=== PATIENT | female | born 1970 | race Caucasian/White ===

== ENCOUNTER → 2017-02-15 | Outpatient (CLI) | payer SELFPAY | LOC: YCFC.O 11:50 | PROVIDERS: ATTEND Nurse Practitioner Family | DX: E03.9 Hypothyroidism, unspecified (principal); I10 Essential (primary) hypertension; N92.0 Excessive and frequent menstruation with regular cycle; Z13.0 Encounter for screening for diseases of the blood and blood-forming organs and certain disorders involving the immune mechanism ==

== ENCOUNTER → 2017-04-20 | Outpatient (CLI) | payer SELFPAY | END | disposition home or self-care (01) | LOC: YCFC.O 10:57 | PROVIDERS: ATTEND Nurse Practitioner Family | DX: D50.9 Iron deficiency anemia, unspecified (principal) ==

== ENCOUNTER → 2017-05-01 | Outpatient (CLI) | payer OTHER | END | disposition home or self-care (01) | LOC: MAMMO 15:42 | PROVIDERS: ATTEND Family Medicine | DX: Z12.31 Encounter for screening mammogram for malignant neoplasm of breast (principal) ==

== ENCOUNTER → 2017-05-14 | Outpatient (CLI) | payer SELFPAY | LOC: YCFC.O 17:06 | PROVIDERS: ATTEND Nurse Practitioner Family | DX: D50.9 Iron deficiency anemia, unspecified (principal) ==

== ENCOUNTER 2018-08-14 17:21 | Emergency (ER) | payer SELFPAY ==
[2018-08-14] MEDS ORDERED: IPRATROPIUM/ALBUTEROL 3 ML VIAL INH ONE (18:22)
[2018-08-14] MEDS ORDERED: SODIUM CHLORIDE 0.9% (FLUSH) 10 ML SYG IV PRN (18:22)
--- NOTE | 2018-08-14 18:26 | ED.PDOC ---
History of Present Illness - General Source: patient Exam Limitations: no limitations - History of Present Illness Initial Comments: PT REPORTS 1 DAY HISTORY OF SOB. PT STATES THAT SHE DOESN'T FEEL LIKE SHE IS GETTING ENOUGH AIR. PT STATES THAT SHE FEELS INTERMITTENT PAINS IN THE CHEST THAT FEEL LIKE PINS AND NEEDLES. PT REPORTS USING HER INHALER AT HOME 2 TIMES TODAY WITHOUT IMPROVEMENT. SHE REPORTS OCCASIONAL NON PRODUCTIVE COUGH BUT DENIES FEVER. Timing/Duration: 24 hours Severity: moderate Activities at Onset: none Associated Symptoms: chest pain, cough <Vinny Prajapati H - Last Filed: 08/14/18 19:55> <Kaushik Spears R - Last Filed: 08/14/18 20:45> - General Chief Complaint: Respiratory Problem Stated Complaint: shortness of breath Time Seen by Provider: 08/14/18 18:22 - History of Present Illness Allergies/Adverse Reactions: Allergies NO KNOWN ALLERGY Allergy (Verified 08/14/18 19:38) Home Medications: Ambulatory Orders Albuterol Inhaler [Ventolin Hfa Inhaler] 0 gm INH Q6H #1 inh 04/26/15 Budes/Formoterol INH 160/4.5 [Symbicort Inhaler 160/4.5] 1 puff INH DAILY Dexlansoprazole [Dexilant] 30 mg PO DAILY 08/14/18 Levothyroxine Sodium [Levoxyl] 25 mcg PO DAILY 08/14/18 Lisinopril & Hydrochlorothiazi [Zestoretic 20-25 mg] 1 tab PO DAILY 08/14/18 Pitavastatin Calcium [Livalo] 2 mg PO DAILY 08/14/18 predniSONE 20 mg PO DAILY 7 Days #7 tab 08/14/18 Review of Systems - Review of Systems Constitutional: Denies: chills, fever EENTM: Denies: nose congestion, throat pain Respiratory: Denies: cough, short of breath Cardiology: States: chest pain. Denies: edema, palpitations Gastrointestinal/Abdominal: Denies: nausea, vomiting Genitourinary: Denies: dysuria, frequency Musculoskeletal: Denies: joint pain, joint swelling Skin: Denies: dryness, lesions Neurological: Denies: headache, numbness <Vinny Prajapati H - Last Filed: 08/14/18 19:55> Past Medical History (General) - Patient Medical History Hx Seizures: No Hx Stroke: No Hx Dementia: No Hx Asthma: No Hx of COPD: No Hx Cardiac Disorders: No Hx Congestive Heart Failure: No Hx Pacemaker: No Hx Hypertension: Yes Hx Thyroid Disease: Yes Hx Diabetes: Yes Hx Gastroesophageal Reflux: Yes Hx Renal Disease: No Hx Cancer: No Hx of HIV: No Hx Hepatitis C: No Hx MRSA: Yes - "about 25 years ago" - Vaccination History Hx Tetanus, Diphtheria Vaccination: No Hx Influenza Vaccination: No - Social History Hx Tobacco Use: Yes Hx Alcohol Use: No Hx Substance Use: No Hx Substance Use Treatment: No Hx Depression: No Hx Physical Abuse: No Hx Emotional Abuse: No Hx Suspected Abuse: No - Female History Patient is a Female of Child Bearing Age (10 -59 yrs old): Yes <AloGeronimocassandra Kamini - Last Filed: 08/14/18 19:55> Family Medical History - Family History Mother Living Status: Still Living Hx Family Diabetes: Yes <AloGeronimocassandra Kamini - Last Filed: 08/14/18 19:55> - Family History Mother Hx Family Diabetes: Yes - mom Hx Family Cancer: Yes - dad-lungs <Kaushik Spears Fatimah - Last Filed: 08/14/18 20:45> Physical Exam - Physical Exam General Appearance: Alert, No apparent distress, Obese, Well Groomed, Well Hydrated Eyes, Ears, Nose, Throat Exam: normal ENT inspection Neck: supple, normal inspection Respiratory: lungs clear, normal breath sounds, no respiratory distress Cardiovascular/Chest: regular rate, rhythm, no murmur Gastrointestinal/Abdominal: non tender, soft Extremity: pedal edema Neurologic: alert, normal mood/affect, oriented x 3 Skin Exam: normal color, warm/dry <AloGeronimocassandra Kamini - Last Filed: 08/14/18 19:55> Progress - Progress Progress: 08/14/18 20:36 Vital Signs - 8 hr 08/14/18 08/14/18 08/14/18 17:37 18:41 18:46 Temperature 97.5 F L Pulse Rate 80 Pulse Rate [ 88 Left Brachial] Respiratory 18 18 Rate Blood Pressure 137/75 [Left Arm] O2 Sat by Pulse 98 97 100 Oximetry 08/14/18 08/14/18 19:00 19:15 Temperature Pulse Rate Pulse Rate [ 82 Left Brachial] Respiratory 20 20 Rate Blood Pressure 118/66 [Left Arm] O2 Sat by Pulse 95 Oximetry - Results/Orders Results/Orders: 08/14/18 18:22 Telemetry .ONCE Sodium Chloride 0.9% (Flush) [Saline Flush Syringe] 10 ml IV PRN PRN 08/14/18 18:30 EKG STAT 08/15/18 09:00 Pulse Ox Daily Laboratory Results - last 24 hr 08/14/18 08/14/18 08/14/18 18:31 18:31 18:31 WBC 10.1 RBC 4.57 Hgb 11.5 L Hct 35.1 L MCV 76.8 L MCH 25.1 L MCHC 32.7 L RDW 16.7 H Plt Count 410 H MPV 7.4 Absolute Neuts (auto) 6.70 Absolute Lymphs (auto) 2.40 Absolute Monos (auto) 0.70 Absolute Eos (auto) 0.20 Absolute Basos (auto) 0.10 Neutrophils % 66.8 Lymphocytes % 23.6 Monocytes % 7.3 Eosinophils % 1.6 Basophils % 0.7 D-Dimer, Quantitative 0.39 Sodium 138 Potassium 3.8 Chloride 105 Carbon Dioxide 26 Anion Gap 10.8 L BUN 17 Creatinine 0.93 BUN/Creatinine Ratio 18.3 Random Glucose 93 Serum Osmolality 276.9 Calcium 8.7 Total Bilirubin 0.5 AST 26 ALT 21 Alkaline Phosphatase 112 Creatine Kinase CK-MB (CK-2) CK-MB (CK-2) % Troponin I B-Natriuretic Peptide 7.1 Serum Total Protein 8.4 H Albumin 3.9 Globulin 4.5 H Albumin/Globulin Ratio 0.9 L 08/14/18 18:31 WBC RBC Hgb Hct MCV MCH MCHC RDW Plt Count MPV Absolute Neuts (auto) Absolute Lymphs (auto) Absolute Monos (auto) Absolute Eos (auto) Absolute Basos (auto) Neutrophils % Lymphocytes % Monocytes % Eosinophils % Basophils % D-Dimer, Quantitative Sodium Potassium Chloride Carbon Dioxide Anion Gap BUN Creatinine BUN/Creatinine Ratio Random Glucose Serum Osmolality Calcium Total Bilirubin AST ALT Alkaline Phosphatase Creatine Kinase 143 H CK-MB (CK-2) 1.3 CK-MB (CK-2) % Not Reportable Troponin I < 0.02 B-Natriuretic Peptide Serum Total Protein Albumin Globulin Albumin/Globulin Ratio - EKG/XRAY/CT EKG: Sinus Comments: HR-78 XRAY: chest - no acute abnormalities <Bucag,Faulkner R - Last Filed: 08/14/18 20:45> Departure <Vinny Prajapati H - Last Filed: 08/14/18 19:55> - Departure Time of Disposition: 20:42 <Kaushik Spears R - Last Filed: 08/14/18 20:45> - Departure Clinical Impression: Reactive airway disease with acute exacerbation Qualifiers: Asthma severity: unspecified severity Asthma persistence: unspecified Qualified Code(s): J45.901 - Unspecified asthma with (acute) exacerbation Disposition: Discharge to Home or Self Care Condition: Fair Departure Forms: ED Discharge - Pt. Copy, Patient Portal Self Enrollment Prescriptions: predniSONE 20 mg PO DAILY 7 Days #7 tab Home Medications: Ambulatory Orders Albuterol Inhaler [Ventolin Hfa Inhaler] 0 gm INH Q6H #1 inh 04/26/15 Budes/Formoterol INH 160/4.5 [Symbicort Inhaler 160/4.5] 1 puff INH DAILY Dexlansoprazole [Dexilant] 30 mg PO DAILY 08/14/18 Levothyroxine Sodium [Levoxyl] 25 mcg PO DAILY 08/14/18 Lisinopril & Hydrochlorothiazi [Zestoretic 20-25 mg] 1 tab PO DAILY 08/14/18 Pitavastatin Calcium [Livalo] 2 mg PO DAILY 08/14/18 predniSONE 20 mg PO DAILY 7 Days #7 tab 08/14/18 Additional Instructions: continue with current medications;return to emergency room as needed
--- NOTE | 2018-08-14 18:33 | RAD ---
EXAM DESCRIPTION: AP view of the chest CLINICAL HISTORY:47 years Female, SOB Comparison: None FINDINGS: No focal lung consolidation. No pleural effusion. No pneumothorax. Cardiac and mediastinal silhouette is unremarkable. No acute osseous abnormality. Soft tissues are unremarkable. IMPRESSION: No acute findings. No focal lung consolidation. Electronically signed by: Patricio Prado DO 08/14/2018 6:31 PM CDT
[2018-08-14] MEDS ORDERED: methylPREDNISolone SODIUM SUC 125 MG/2 ML VIAL IV ONE (20:40)
[2018-08-14 21:04] VITALS: BP 128/77; TEMP 97.9; O2SAT 97
== END 2018-08-14 21:00 | disposition home or self-care (01) ==
LOC: ER 17:21
DX: J45.901 Unspecified asthma with (acute) exacerbation (principal); K21.9 Gastro-esophageal reflux disease without esophagitis; I10 Essential (primary) hypertension; E11.9 Type 2 diabetes mellitus without complications; E07.9 Disorder of thyroid, unspecified; Z87.891 Personal history of nicotine dependence; Z79.899 Other long term (current) drug therapy
CPT/HCPCS: 36415; 71045; 80053; 82550; 82553; 83880; 84484; 85025; 85379; 93005; 94640; 94760; J2930; J7620

== ENCOUNTER 2018-12-14 09:18 | Observation (INO) | payer SELFPAY ==
[2018-12-14] MEDS ORDERED: ALBUTEROL SULFATE NEBS (ED DISPENSE) 2.5 MG/3 ML VIAL NEB ONE (09:22)
[2018-12-14] MEDS ORDERED: ALBUTEROL SULFATE 2.5 MG/3 ML VIAL NEB ONE ×2 (09:22→09:59)
[2018-12-14] MEDS ORDERED: SODIUM CHL 0.9% 50ML VIAL 12 ML, ALBUTEROL SULFATE NEBS 7.5 MG NEB ONE ×2 (09:29)
[2018-12-14] MEDS ORDERED: methylPREDNISolone SODIUM SUC 125 MG/2 ML VIAL IV ONE (09:29)
--- NOTE | 2018-12-14 09:34 | ED.PDOC ---
History of Present Illness - General Chief Complaint: Respiratory Problem Stated Complaint: shortness of breath Time Seen by Provider: 12/14/18 09:29 Source: patient Exam Limitations: clinical condition - History of Present Illness Initial Comments: patient comes in today with severe shortness of breath. Patient has known COPD but states she couldn't catch her breath to do a breathing treatment this morning. She started feeling little sick last night with a bit of fever, cough, and congestion. This morning she was unable to breathe. Patient had wheezing but no productive sputum. Patient can only say one or 2 words prior to taking a big deep breath and is in moderate respiratory distress on arrival. Patient has past medical history of hypertension, hyperlipidemia, COPD, and hypothyroidism. Timing/Duration: 24 hours Severity: severe Activities at Onset: rest Possible Cause: frequent episodes Improving Factors: nothing Worsening Factors: movement Associated Symptoms: cough Allergies/Adverse Reactions: Allergies NO KNOWN ALLERGY Allergy (Verified 12/14/18 09:43) Home Medications: Ambulatory Orders Albuterol Inhaler [Ventolin Hfa Inhaler] 0 gm INH Q6H #1 inh 04/26/15 Budes/Formoterol INH 160/4.5 [Symbicort Inhaler 160/4.5] 1 puff INH DAILY 08/14/18 Dexlansoprazole [Dexilant] 30 mg PO DAILY 08/14/18 Levothyroxine Sodium [Levoxyl] 25 mcg PO DAILY 08/14/18 Lisinopril & Hydrochlorothiazi [Zestoretic 20-25 mg] 1 tab PO DAILY 08/14/18 Pitavastatin Calcium [Livalo] 2 mg PO DAILY 08/14/18 predniSONE 20 mg PO DAILY 7 Days #7 tab 08/14/18 Review of Systems - Review of Systems Constitutional: States: chills, fever, malaise EENTM: States: nose congestion Respiratory: States: cough, short of breath, wheezing Cardiology: Denies: no symptoms reported, chest pain, edema, palpitations Gastrointestinal/Abdominal: States: no symptoms reported. Denies: abdominal pain, constipation, diarrhea, nausea, vomiting Genitourinary: States: no symptoms reported Musculoskeletal: States: no symptoms reported Past Medical History (General) - Patient Medical History Hx Seizures: No Hx Stroke: No Hx Dementia: No Hx Asthma: No Hx of COPD: No Hx Cardiac Disorders: No Hx Congestive Heart Failure: No Hx Pacemaker: No Hx Hypertension: Yes Hx Thyroid Disease: Yes Hx Diabetes: Yes Hx Gastroesophageal Reflux: Yes Hx Renal Disease: No Hx Cancer: No Hx of HIV: No Hx Hepatitis C: No Hx MRSA: Yes - "about 25 years ago" - Vaccination History Hx Tetanus, Diphtheria Vaccination: No Hx Influenza Vaccination: No - Social History Hx Tobacco Use: Yes Hx Alcohol Use: No Hx Substance Use: No Hx Substance Use Treatment: No Hx Depression: No Hx Physical Abuse: No Hx Emotional Abuse: No Hx Suspected Abuse: No Family Medical History - Family History Mother Living Status: Still Living Hx Family Diabetes: Yes - mom Hx Family Cancer: Yes - dad-lungs Physical Exam - Physical Exam General Appearance: Alert, Obvious distress Eyes, Ears, Nose, Throat Exam: PERRL/EOMI, normal ENT inspection, TMs normal Neck: non-tender, full range of motion, supple, normal inspection Respiratory: decreased breath sounds, wheezing - in all lung pena Cardiovascular/Chest: normal peripheral pulses, regular rate, rhythm, no edema, no murmur Gastrointestinal/Abdominal: normal bowel sounds, non tender, soft Progress - Progress Progress: 12/14/18 11:25 patient is feeling better after treatments and able to speak but still wheezing. Discussed with kapok and cotton machine operator Dr. Mena and will admit - Results/Orders Results/Orders: 12/14/18 09:32 SVN/Updraft Therapy .PRN 12/14/18 09:45 EKG STAT Laboratory Results WBC 13.5 K/mm3 (4.8-10.8) H 12/14/18 09:43 RBC 4.06 M/mm3 (4.20-5.40) L 12/14/18 09:43 Hgb 9.6 gm/dL (12.0-16.0) L 12/14/18 09:43 Hct 30.7 % (36.0-47.0) L 12/14/18 09:43 MCV 75.5 fl (81.0-99.0) L 12/14/18 09:43 MCH 23.6 pg (27.0-31.0) L 12/14/18 09:43 MCHC 31.3 g/dL (33.0-37.0) L 12/14/18 09:43 RDW 16.4 % (11.5-14.5) H 12/14/18 09:43 Plt Count 378 K/mm3 (130-400) 12/14/18 09:43 MPV 6.9 fl (7.40-10.4) L 12/14/18 09:43 Absolute Neuts (auto) 9.80 K/uL (1.8-6.8) H 12/14/18 09:43 Absolute Lymphs (auto) 2.40 K/uL (1.0-3.4) 12/14/18 09:43 Absolute Monos (auto) 0.90 K/uL (0.2-0.8) H 12/14/18 09:43 Absolute Eos (auto) 0.40 K/uL (0.0-0.4) 12/14/18 09:43 Absolute Basos (auto) 0.10 K/uL (0.0-0.1) 12/14/18 09:43 Neutrophils % 72.1 % (42.0-78.0) 12/14/18 09:43 Lymphocytes % 17.9 % (20.0-50.0) L 12/14/18 09:43 Monocytes % 6.8 % (2.0-9.0) 12/14/18 09:43 Eosinophils % 2.6 % (1.0-5.0) 12/14/18 09:43 Basophils % 0.6 % (0.0-2.0) 12/14/18 09:43 RBC Morphology 1+aniso 1+hypochromia 12/14/18 09:43 RBC Morphology 1+aniso 1+hypochromia 12/14/18 09:43 PT 9.9 SECONDS (9.0-10.9) 12/14/18 09:43 INR 0.99 (0.9-1.15) 12/14/18 09:43 PTT (SP) 25.4 SECONDS (21.8-31.6) 12/14/18 09:43 Sodium 138 mmol/L (135-145) 12/14/18 09:43 Potassium 3.6 mmol/L (3.6-5.0) 12/14/18 09:43 Chloride 104 mmol/L (101-111) 12/14/18 09:43 Carbon Dioxide 25 mmol/L (21-31) 12/14/18 09:43 Anion Gap 12.6 (12-18) 12/14/18 09:43 BUN 18 mg/dL (7-18) 12/14/18 09:43 Creatinine 0.90 mg/dL (0.6-1.3) 12/14/18 09:43 BUN/Creatinine Ratio 20.0 (10-20) 12/14/18 09:43 Random Glucose 132 mg/dL (70-105) H 12/14/18 09:43 Serum Osmolality 279.4 mOsm/L (275-295) 12/14/18 09:43 Calcium 8.4 mg/dL (8.4-10.2) 12/14/18 09:43 Magnesium 1.8 mg/dL (1.8-2.5) 12/14/18 09:43 Total Bilirubin < 0.2 mg/dL (0.2-1.0) L 12/14/18 09:43 Direct Bilirubin < 0.1 mg/dL (0-0.2) 12/14/18 09:43 Indirect Bilirubin 0.1 mg/dL (0.2-0.8) L 12/14/18 09:43 AST 18 IU/L (10-42) 12/14/18 09:43 ALT 15 IU/L (10-60) 12/14/18 09:43 Alkaline Phosphatase 104 IU/L (42-121) 12/14/18 09:43 Creatine Kinase 123 IU/L (26-140) 12/14/18 09:43 CK-MB (CK-2) 1.2 ng/mL (0.0-4.4) 12/14/18 09:43 CK-MB (CK-2) % Not Reportable 12/14/18 09:43 Troponin I < 0.02 ng/mL (0.01-0.05) 12/14/18 09:43 Serum Total Protein 7.4 gm/dL (6.4-8.2) 12/14/18 09:43 Albumin 3.4 g/dl (3.2-5.5) 12/14/18 09:43 chest x-ray: no acute cardiopulmonary process - EKG/XRAY/CT EKG: Sinus, no ST T wave changes Comments: HR 89 QTc 452 normal axis Departure - Departure Clinical Impression: COPD with exacerbation Disposition: Admit Patient Condition: Fair Departure Forms: ED Discharge - Pt. Copy, Patient Portal Self Enrollment Home Medications: Ambulatory Orders Albuterol Inhaler [Ventolin Hfa Inhaler] 0 gm INH Q6H #1 inh 04/26/15 Budes/Formoterol INH 160/4.5 [Symbicort Inhaler 160/4.5] 1 puff INH DAILY 08/14/18 Dexlansoprazole [Dexilant] 30 mg PO DAILY 08/14/18 Levothyroxine Sodium [Levoxyl] 25 mcg PO DAILY 08/14/18 Lisinopril & Hydrochlorothiazi [Zestoretic 20-25 mg] 1 tab PO DAILY 08/14/18 Pitavastatin Calcium [Livalo] 2 mg PO DAILY 08/14/18 predniSONE 20 mg PO DAILY 7 Days #7 tab 08/14/18 Decision To Admit - Decistion To Admit Decision to Admit Reason: Admit from ER Decision to Admit Date: 12/14/18 Decision to Admit Time: 11:25
[2018-12-14] MEDS ORDERED: SODIUM CHLORIDE 0.9% 50 ML VIAL ONE (09:59)
--- NOTE | 2018-12-14 10:17 | RAD ---
PROCEDURE: XR Chest, 1 View CLINICAL INDICATION: The patient is 48 years old and is Female; shortness of breath TECHNIQUE: Frontal view of the chest. COMPARISON: Comparison is made to the prior study dated 08/14/2018 FINDINGS: LUNGS: Unremarkable. No consolidation. PLEURAL SPACE: Unremarkable. No pneumothorax. HEART: Unremarkable. No cardiomegaly. MEDIASTINUM: Unremarkable. BONES/JOINTS: Unremarkable.No acute fracture noted. No dislocation. Joint spaces maintained. IMPRESSION: No active disease is seen in the chest. No change. Electronically signed by: Bryce Redman MD 12/14/2018 10:15 AM [facility]
[2018-12-14] MEDS ORDERED: ALBUTEROL SULFATE 2.5 MG/3 ML VIAL NEB PRN (12:25)
[2018-12-14] MEDS ORDERED: SODIUM CHLORIDE 0.9% (FLUSH) 10 ML SYG IV PRN (12:25)
[2018-12-14] MEDS ORDERED: IV SET AND CAP CHANGE INJ INJ SCH (12:30)
--- NOTE | 2018-12-14 12:55 | HP ---
CHIEF COMPLAINT: Shortness of breath, cough. HISTORY OF PRESENT ILLNESS: Ms. Hall is a 48 year-old female who is morbidly obese and has a history of chronic obstructive pulmonary disease who presented to the E. R. after several days of having a cough and diffuse achiness. She woke up yesterday, 12/13, with slight shortness of breath which worsened over the day and is worse this morning, thus presenting to the Emergency Room. She denies any sick contacts at home. She states she is currently not smoking. In the E. R., she did receive Albuterol treatments continuously for over 2 hours, as well as Solu-Medrol. Per E. R. physician her wheezing subsided, but her lung sounds are still very coarse. She was fairly short of breath. She is not on oxygen at home. Currently she does endorse she has been trying to offer disability, in order to have a sleep study and potentially have a CPAP prescribed. She denies fevers or purulent sputum production. PAST MEDICAL HISTORY: 1. Hypertension. 2. Hypothyroidism. 3. Hyperlipidemia. 4. Chronic obstructive pulmonary disease. PAST SURGICAL HISTORY: CURRENT MEDICATIONS: 1. Albuterol inhaler 1 puff every 6 hours p.r.n. 2. Symbicort inhaler 1 puff b.i.d. 3. Dexlansoprazole 30 mg p.o. daily. 4. Iron supplementation 65 mg p.o. daily. 5. Vicoprofen 800 mg p.o. t.i.d. p.r.n. 6. Levothyroxine 100 mcg p.o. daily. 7. Lisinopril/HCTZ 70-25 mg 1 tab p.o. daily. 8. Pitavastatin 4 mg p.o. daily. 9. Tizanidine 4 mg p.o. daily. ALLERGIES: NO KNOWN DRUG ALLERGIES. FAMILY HISTORY: Lung cancer in the father, hypertension and diabetes in the mother. SOCIAL HISTORY: Smoking history of 1 to 2 packs per day for 30 years, quit 3- 1/2 years ago, currently denies alcohol use or illicit drug use. Currently she is unemployed and filing for disability. She does not have a nebulizer or any other equipment at home. REVIEW OF SYSTEMS: GENERAL: No fever or chills, feels that she is slowly getting better since the E. R. HEENT: No congestion, no sore throat, no headache. CHEST: No tenderness to palpation throughout the chest wall, no pleuritic chest pain. CARDIOVASCULAR: No chest pain, no new peripheral edema. RESPIRATORY: Short of breath, nonproductive cough. GASTROINTESTINAL: No abdominal pain, no nausea or vomiting, normal bowel movements. MUSCULOSKELETAL: No joint pains, no muscle pains. PHYSICAL EXAMINATION: VITAL SIGNS: Temperature 98.5 degrees Fahrenheit, pulse 104, blood pressure 104/71, respiratory rate 17, pulse oximetry 95% on room air. GENERAL: Sitting up in bed, breathing normally in no acute distress. CHEST: No tenderness to palpation over the chest wall, no pleuritic chest pain. CARDIOVASCULAR: Normal sinus rhythm, no murmurs, no pitting peripheral edema. RESPIRATORY: Coarse breath sounds diffuse bilaterally, no focal areas of decreased auscultation, no wheezing, difficult full inspiratory. GASTROINTESTINAL: No tenderness to palpation, no masses, normal bowel sounds present. MUSCULOSKELETAL: Moving all extremities normally, no deformities. LABORATORY: White blood cell count 13.5, hemoglobin and hematocrit 9.6/30.7, platelet count 378. PT and INR is 9.9/0.99. Sodium 138, potassium 3.6, chloride 104, carbon dioxide 25, BUN/creatinine 18/0.9. Serum osmolality within normal limits. Liver function within normal limits. IMAGING: Chest x-ray: No active disease seen in the chest. No change from previous exams. ASSESSMENT: 1. Chronic obstructive pulmonary disease exacerbation, acute on chronic. 2. Hypertension. 3. Hypothyroidism. 4. Hyperlipidemia. 5. Morbid obesity. PLAN: Will admit the patient to observation unit and treat for COPD exacerbation. Treatment consists of azithromycin for 5 days, as well as DuoNeb scheduled and Albuterol p.r.n. Will consult Corporate Compliance Officer when available for prescription assistance as the patient is currently unfunded and unemployed. She does not have appropriate resources at home to take care of herself at this time. We will continue her home medications once everything has been confirmed. I presume her hospital stay will be 1 to 2 days, pending visit with Social Work to help with a safe transition home. Will follow labs daily as appropriate, and continue to monitor the patient. #[id number] MTDD
[2018-12-14] MEDS: AZITHROMYCIN 250 MG TAB PO SCH (13:30)
[2018-12-14] MEDS ORDERED: IBUPROFEN 400 MG TAB ONE (15:52)
[2018-12-14] MEDS ORDERED: IBUPROFEN 400 MG TAB PO ONE (15:54)
[2018-12-14] MEDS: IPRATROPIUM/ALBUTEROL 3 ML VIAL NEB SCH ×2 (16:00→19:56)
[2018-12-14] MEDS: BUDESONIDE/FORMOTEROL 160/4.5 60 PUFF/6 GM INH INH SCH (19:56)
[2018-12-14] MEDS ORDERED: PANTOPRAZOLE SODIUM TAB 40 MG PO ONE (20:00)
[2018-12-14] MEDS ORDERED: LEVOTHYROXINE SODIUM 0.1 MG TAB ONE (20:01)
[2018-12-15] MEDS: IPRATROPIUM/ALBUTEROL 3 ML VIAL NEB SCH ×4 (00:09→13:45)
[2018-12-15] MEDS ORDERED: PANTOPRAZOLE SODIUM TAB 40 MG PO SCH (06:30)
[2018-12-15] MEDS ORDERED: LEVOTHYROXINE SODIUM 0.1 MG TAB PO SCH (06:30)
[2018-12-15] MEDS ORDERED: ACETAMINOPHEN 325 MG TAB PO PRN (08:00)
[2018-12-15] MEDS: BUDESONIDE/FORMOTEROL 160/4.5 60 PUFF/6 GM INH INH SCH (08:40)
[2018-12-15] MEDS ORDERED: PITAVASTATIN CALCIUM 4 MG PO SCH (09:00)
[2018-12-15] MEDS ORDERED: SODIUM CHLORIDE 0.9% (FLUSH) 10 ML SYG IV SCH (09:00)
[2018-12-15] MEDS ORDERED: predniSONE 20 MG TAB PO SCH (09:00)
[2018-12-15] MEDS ORDERED: FERROUS SULFATE 325 MG TAB PO SCH (09:00)
[2018-12-15] MEDS ORDERED: tiZANidine 4 MG TAB PO SCH (09:00)
[2018-12-15] MEDS ORDERED: LEVALBUTEROL NEBS 1.25 MG/3 ML VIAL NEB ONE (13:00)
[2018-12-15] MEDS: AZITHROMYCIN 250 MG TAB PO SCH (13:00)
[2018-12-15] MEDS ORDERED: LEVALBUTEROL NEBS 1.25 MG/3 ML VIAL NEB PRN (13:19)
[2018-12-15 15:29] VITALS: BP 134/66; TEMP 98.7; O2SAT 98
[2018-12-15] MEDS ORDERED: LEVALBUTEROL NEBS 1.25 MG/3 ML VIAL NEB SCH (16:00)
--- NOTE | 2018-12-17 10:17 | DS ---
SUPERVISING PHYSICIAN: Osmel Mena MD ADMISSION DIAGNOSIS: 1. Chronic obstructive pulmonary disease exacerbation, acute on chronic. 2. Hypertension. 3. Hypothyroidism. 4. Hyperlipidemia. 5. Morbid obesity. DISCHARGE DIAGNOSIS: 1. Chronic obstructive pulmonary disease with acute exacerbation, improving with steroids and pulmonary hygiene. 2. Hypertension, stable. 3. Hypothyroidism on supplementation. 4. Hyperlipidemia. 5. Morbid obesity. REASON FOR HOSPITALIZATION: Ms. Hall is a 48 year-old female who is morbidly obese and has a history of chronic obstructive pulmonary disease who presented to the E. R. after several days of having a cough and diffuse achiness. She woke up yesterday, 12/13, with slight shortness of breath which worsened over the day and is worse this morning, thus presenting to the Emergency Room. She denies any sick contacts at home. She states she is currently not smoking. In the E. R., she did receive Albuterol treatments continuously for over 2 hours, as well as Solu-Medrol. Per E. R. physician her wheezing subsided, but her lung sounds are still very coarse. She was fairly short of breath. She is not on oxygen at home. Currently she does endorse she has been trying to offer disability, in order to have a sleep study and potentially have a CPAP prescribed. She denies fevers or purulent sputum production at time of admission. LABORATORY: White count on admission was 13,500, hemoglobin 9.6, hematocrit 30.7, platelet count 378,000. Differential with left shift. RBC indices showed a microcytic/hyperchromic presentation. White count on discharge was 14,900, hemoglobin 9.3, hematocrit 29.7, platelet count 309,000. Differential continued to show a left shift. Coagulation studies were normal. Chemistries showed normal electrolytes, glucose 132, calcium 8.4, magnesium 1.8. Liver functions all within normal limits. Troponin less than 0.02. At discharge, electrolytes were within normal limits. Calcium 8.6. MICROBIOLOGY: Influenza A and B by PCR was negative. RADIOLOGY: Chest x-ray in the Emergency Room prior to admission, single-view, showed no active disease in the chest, no change from previous. EKG on admission showed normal sinus rhythm, no elevation or T-wave inversion to indicate ischemic event. HOSPITAL COURSE: Ms. Hall was admitted for exacerbation of chronic obstructive pulmonary disease. She was started on aggressive pulmonary hygiene with DuoNeb treatments, given IV Solu-Medrol and started on azithromycin. She was having some undesirable effects from the albuterol and was switched to Xopenex. With aggressive pulmonary hygiene, corticosteroids and breathing treatments, she progressed well to the point where she could continue management as an outpatient. PLAN: Ms. Hall was discharged on 12/15/18 with instructions to followup with her primary care provider in [place]. She was told to resume all her home medications as instructed and to return to the hospital should she have any concerning symptoms. She was instructed on how take her new medications at discharge. She was to resume her usual diet and increase activity as tolerated. New medications at discharge included: 1. Robitussin 12 Hour Cough 5 mg q.12h. as needed, #1 bottle, no refills. 2. Albuterol nebulizers 2.5 mg per 3 mL q.4h. as needed, #30, no refills. 3. Azithromycin 250 mg daily for 4 days, no refills. 4. Prednisone 10 mg taper, #30, 40 mg x3 days, 30 mg x3 days, 20 mg x3, and 10 mg x3. CONDITION AT DISCHARGE: Stable and improved. DISPOSITION: The patient is discharged home. #[id number]
== END 2018-12-15 16:00 | disposition home or self-care (01) ==
LOC: ER 09:18 → INTOOBSV 12:54 → MS 12:54
PROVIDERS: ADMIT Family Medicine; ATTEND Nurse Practitioner Family
DX: J44.1 Chronic obstructive pulmonary disease with (acute) exacerbation (principal); I10 Essential (primary) hypertension; E03.9 Hypothyroidism, unspecified; E78.5 Hyperlipidemia, unspecified; E66.01 Morbid (severe) obesity due to excess calories; Z68.43 Body mass index [BMI] 50.0-59.9, adult; Z79.51 Long term (current) use of inhaled steroids; Z79.899 Other long term (current) drug therapy; Z87.891 Personal history of nicotine dependence; Z80.1 Family history of malignant neoplasm of trachea, bronchus and lung; Z82.49 Family history of ischemic heart disease and other diseases of the circulatory system; Z83.3 Family history of diabetes mellitus
CPT/HCPCS: 96374; J7611; Q0144 ×2; J2930; J7512; J7620 ×4; A4216; J7614; 80048 ×2; 36415 ×2; 82550; 82553; 85025 ×2; 85730; 85610; 84484; 80076; 71045; 94640 ×7; 94644; 94645; 94664; 99285; 93005; 87502

== ENCOUNTER 2018-12-31 15:20 | Emergency (ER) | payer SELFPAY ==
[2018-12-31 15:44] VITALS: BP 160/74; TEMP 98.6; O2SAT 98
--- NOTE | 2018-12-31 16:11 | ED.PDOC ---
History of Present Illness - General Chief Complaint: General Stated Complaint: Ring stuck on left ring finger. Time Seen by Provider: 12/31/18 16:08 Source: patient Exam Limitations: no limitations - History of Present Illness Initial Comments: Katarina Hall 48 y/o female stated unable to take out ring on her left ring finger since last night noticed her finger had been slightly swelled up. Has been taking steroids for the last one week for copd exacerbation. Timing/Duration: 24 hours Severity: mild Improving Factors: nothing Worsening Factors: nothing Associated Symptoms: denies symptoms Allergies/Adverse Reactions: Allergies NO KNOWN ALLERGY Allergy (Verified 12/14/18 13:13) Home Medications: Ambulatory Orders Budes/Formoterol INH 160/4.5 [Symbicort Inhaler 160/4.5] 1 puff INH BID 08/14/18 Dexlansoprazole [Dexilant] 30 mg PO DAILY 08/14/18 Levothyroxine Sodium [Levoxyl] 100 mcg PO DAILY 08/14/18 Lisinopril & Hydrochlorothiazi [Zestoretic 20-25 mg] 1 tab PO DAILY 08/14/18 Pitavastatin Calcium [Livalo] 4 mg PO DAILY 08/14/18 Albuterol Inhaler [Ventolin Hfa Inhaler] 0 gm INH Q6H PRN 12/14/18 Ferrous Sulfate [Iron] 65 mg PO DAILY 12/14/18 Ibuprofen 800 mg PO TID PRN 12/14/18 tiZANidine [Zanaflex] 4 mg PO DAILY 12/14/18 Albuterol Sulfate Nebs [Proventil Nebs] 2.5 mg NEB Q4H PRN #30 vial 12/15/18 Azithromycin 250 mg PO DAILY #4 tab 12/15/18 Dextromethorphan Polistirex [Robitussin 12 Hour Cough] 5 mg PO Q12HR PRN #1 bottle 12/15/18 predniSONE [Prednisone] See Taper PO DAILY #30 tab 12/15/18 Review of Systems - Review of Systems Constitutional: States: no symptoms reported EENTM: States: no symptoms reported Respiratory: States: no symptoms reported Musculoskeletal: States: see HPI Past Medical History (General) - Patient Medical History Hx Seizures: No Hx Stroke: No Hx Dementia: No Hx Asthma: No Hx of COPD: Yes Hx Cardiac Disorders: No Hx Congestive Heart Failure: No Hx Pacemaker: No Hx Hypertension: Yes Hx Thyroid Disease: Yes Hx Diabetes: No Hx Gastroesophageal Reflux: Yes Hx Renal Disease: No Hx Cancer: No Hx of HIV: No Hx Hepatitis C: No Hx MRSA: No Surgical History: no surgical history - Vaccination History Hx Tetanus, Diphtheria Vaccination: No Hx Influenza Vaccination: No Hx Pneumococcal Vaccination: No - Social History Hx Tobacco Use: Yes Hx Alcohol Use: No Hx Substance Use: No Hx Substance Use Treatment: No Hx Depression: No Hx Physical Abuse: No Hx Emotional Abuse: No Hx Suspected Abuse: No Family Medical History - Family History Mother Living Status: Still Living Hx Family Diabetes: Yes - mom Hx Family Cancer: Yes - dad-lungs Physical Exam - Physical Exam General Appearance: Alert, Comfortable, No apparent distress Eye Exam: bilateral normal Ears, Nose, Throat: hearing grossly normal, normal ENT inspection Neck: non-tender, supple Respiratory: chest non-tender, lungs clear Cardiovascular/Chest: normal peripheral pulses, regular rate, rhythm, no murmur Gastrointestinal/Abdominal: non tender, soft Back Exam: normal inspection Extremity: other - ring stuck on left ring finger with mild swelling finger Progress - Progress Progress: 12/31/18 16:12 Vital Signs - 8 hr 12/31/18 15:38 Temperature 98.6 F Pulse Rate [ 96 H Left Radial] Respiratory 18 Rate Blood Pressure 160/74 [Left Arm] O2 Sat by Pulse 98 Oximetry 12/31/18 16:13 Ring cutter used to removed stuck ring right 4th digit able to remove it done by the nurse. Departure - Departure Clinical Impression: Ring or other jewelry causing external constriction, initial encounter, Swelling of left ring finger Time of Disposition: 16:16 Disposition: Discharge to Home or Self Care Condition: Good Departure Forms: ED Discharge - Pt. Copy, Patient Portal Self Enrollment Home Medications: Ambulatory Orders Budes/Formoterol INH 160/4.5 [Symbicort Inhaler 160/4.5] 1 puff INH BID 08/14/18 Dexlansoprazole [Dexilant] 30 mg PO DAILY 08/14/18 Levothyroxine Sodium [Levoxyl] 100 mcg PO DAILY 08/14/18 Lisinopril & Hydrochlorothiazi [Zestoretic 20-25 mg] 1 tab PO DAILY 08/14/18 Pitavastatin Calcium [Livalo] 4 mg PO DAILY 08/14/18 Albuterol Inhaler [Ventolin Hfa Inhaler] 0 gm INH Q6H PRN 12/14/18 Ferrous Sulfate [Iron] 65 mg PO DAILY 12/14/18 Ibuprofen 800 mg PO TID PRN 12/14/18 tiZANidine [Zanaflex] 4 mg PO DAILY 12/14/18 Albuterol Sulfate Nebs [Proventil Nebs] 2.5 mg NEB Q4H PRN #30 vial 12/15/18 Azithromycin 250 mg PO DAILY #4 tab 12/15/18 Dextromethorphan Polistirex [Robitussin 12 Hour Cough] 5 mg PO Q12HR PRN #1 bottle 12/15/18 predniSONE [Prednisone] See Taper PO DAILY #30 tab 12/15/18 Additional Instructions: May apply ice pack 10 minutes 3 x a day for today to left ring finger
== END 2018-12-31 16:31 | disposition home or self-care (01) ==
LOC: ER 15:20
DX: S60.445A External constriction of left ring finger, initial encounter (principal); J44.9 Chronic obstructive pulmonary disease, unspecified; I10 Essential (primary) hypertension; E07.9 Disorder of thyroid, unspecified; K21.9 Gastro-esophageal reflux disease without esophagitis; Z79.899 Other long term (current) drug therapy; Z87.891 Personal history of nicotine dependence; W49.04XA Ring or other jewelry causing external constriction, initial encounter; Y92.9 Unspecified place or not applicable

== ENCOUNTER 2019-01-15 17:46 | Emergency (ER) | payer SELFPAY ==
--- NOTE | 2019-01-15 18:23 | ED.PDOC ---
History of Present Illness - General Chief Complaint: Neck Injury/Pain Stated Complaint: Pt states she hurt the left side of her neck Time Seen by Provider: 01/15/19 18:02 Source: patient Exam Limitations: no limitations - History of Present Illness Initial Comments: Patient presents with neck pain for 5 hours. She says she was in the shower and she turned her head to the right. She felt a "pop" on the left side of her neck. Since then, she has had constant aching pain on the left side of her neck that his non-radiating, worse with movement, especially rotating the head to the left, better with rest. She has tried Tylenol #4 that she says she got from her , Zanaflex, and Ibuprofen. The Tylenol #4 and Zanaflex did not work and the ibuprofen she took just 30 minutes [employer]. Denies previous episodes. No other complaints. Timing/Duration: 4-6 hours Severity: moderate Improving Factors: rest Worsening Factors: movement Associated Symptoms: denies symptoms Allergies/Adverse Reactions: Allergies NO KNOWN ALLERGY Allergy (Verified 01/15/19 18:05) Home Medications: Ambulatory Orders Budes/Formoterol INH 160/4.5 [Symbicort Inhaler 160/4.5] 1 puff INH BID 08/14/18 Dexlansoprazole [Dexilant] 30 mg PO DAILY 08/14/18 Levothyroxine Sodium [Levoxyl] 100 mcg PO DAILY 08/14/18 Lisinopril & Hydrochlorothiazi [Zestoretic 20-25 mg] 1 tab PO DAILY 08/14/18 Pitavastatin Calcium [Livalo] 4 mg PO DAILY 08/14/18 Albuterol Inhaler [Ventolin Hfa Inhaler] 0 gm INH Q6H PRN 12/14/18 Ferrous Sulfate [Iron] 65 mg PO DAILY 12/14/18 Ibuprofen 800 mg PO TID PRN 12/14/18 tiZANidine [Zanaflex] 4 mg PO DAILY 12/14/18 Albuterol Sulfate Nebs [Proventil Nebs] 2.5 mg NEB Q4H PRN #30 vial 12/15/18 Dextromethorphan Polistirex [Robitussin 12 Hour Cough] 5 mg PO Q12HR PRN #1 bottle 12/15/18 Ketorolac Tromethamine [Toradol Tabs] 10 mg PO Q6HRS PRN #16 tab 01/15/19 Review of Systems - Review of Systems Constitutional: States: no symptoms reported EENTM: States: no symptoms reported Respiratory: States: no symptoms reported Cardiology: States: no symptoms reported Gastrointestinal/Abdominal: States: no symptoms reported Genitourinary: States: no symptoms reported Musculoskeletal: States: see HPI Skin: States: no symptoms reported Neurological: States: no symptoms reported Endocrine: States: no symptoms reported Hematologic/Lymphatic: States: no symptoms reported Past Medical History (General) - Patient Medical History Hx Seizures: No Hx Stroke: No Hx Dementia: No Hx Asthma: No Hx of COPD: Yes Hx Cardiac Disorders: No Hx Congestive Heart Failure: No Hx Pacemaker: No Hx Hypertension: Yes Hx Thyroid Disease: Yes Hx Diabetes: No Hx Gastroesophageal Reflux: Yes Hx Renal Disease: No Hx Cancer: No Hx of HIV: No Hx Hepatitis C: No Hx MRSA: No Surgical History: no surgical history - Vaccination History Hx Tetanus, Diphtheria Vaccination: No Hx Influenza Vaccination: No Hx Pneumococcal Vaccination: No Immunizations Up to Date: - Unk - Social History Hx Tobacco Use: Yes Hx Alcohol Use: No Hx Substance Use: No Hx Substance Use Treatment: No Hx Depression: No Hx Physical Abuse: No Hx Emotional Abuse: No Hx Suspected Abuse: No - Female History Patient is a Female of Child Bearing Age (10 -59 yrs old): Yes Family Medical History - Family History Mother Family History: Unknown Living Status: Still Living Hx Family Diabetes: Yes - mom Hx Family Cancer: Yes - dad-lungs Physical Exam - Physical Exam General Appearance: Alert Neck: other - TTP over left Sternomastoid. There is mild pain with flexion and extension of the neck. Also, mild pain with rotation of the head to the right. Rotation of the head to the left is very painful and she stops at about 15 degrees of rotation. Respiratory: lungs clear, normal breath sounds Cardiovascular/Chest: normal peripheral pulses, regular rate, rhythm Gastrointestinal/Abdominal: normal bowel sounds, non tender, soft Progress - Progress Progress: 01/15/19 19:12 Cervical spine radiographs were negative for fracture or subluxation. The patient's pain improved significantly with Toradol 15 mg IM x one and Norflex 30 mg IM x one. She was also given ice to put on the left side of the neck. This is likely a sprain but I recommended follow up with her pcp if the pain got worse or is not resolved in two weeks. Care instructions given. E.R. warnings given. Questions were elicited and answered. Patient voiced understanding and agreement with the plan. Departure - Departure Clinical Impression: Sprain of cervical neck Disposition: Discharge to Home or Self Care Condition: Good Departure Forms: ED Discharge - Pt. Copy, Patient Portal Self Enrollment Instructions: DI for Cervical Muscle Strain, DI for Neck Pain Diet: resume usual diet Activity: increase activity as tolerated Prescriptions: Ketorolac Tromethamine [Toradol Tabs] 10 mg PO Q6HRS PRN #16 tab PRN Reason: Pain Home Medications: Ambulatory Orders Budes/Formoterol INH 160/4.5 [Symbicort Inhaler 160/4.5] 1 puff INH BID 08/14/18 Dexlansoprazole [Dexilant] 30 mg PO DAILY 08/14/18 Levothyroxine Sodium [Levoxyl] 100 mcg PO DAILY 08/14/18 Lisinopril & Hydrochlorothiazi [Zestoretic 20-25 mg] 1 tab PO DAILY 08/14/18 Pitavastatin Calcium [Livalo] 4 mg PO DAILY 08/14/18 Albuterol Inhaler [Ventolin Hfa Inhaler] 0 gm INH Q6H PRN 12/14/18 Ferrous Sulfate [Iron] 65 mg PO DAILY 12/14/18 Ibuprofen 800 mg PO TID PRN 12/14/18 tiZANidine [Zanaflex] 4 mg PO DAILY 12/14/18 Albuterol Sulfate Nebs [Proventil Nebs] 2.5 mg NEB Q4H PRN #30 vial 12/15/18 Dextromethorphan Polistirex [Robitussin 12 Hour Cough] 5 mg PO Q12HR PRN #1 bottle 12/15/18 Ketorolac Tromethamine [Toradol Tabs] 10 mg PO Q6HRS PRN #16 tab 01/15/19 Additional Instructions: Take medications as prescribed. Do not take Toradol ( Ketoralac) with ibuprofen, naproxen, or aspirin. You may use your muscle relaxant as prescribed. Apply ice to the painful area three times per day for three days. On Sunday, switch to heat 2 to three times per day. Increase activity as tolerated. If pain has not resolved in 2 weeks, see your primary care doctor for further evaluation or get an appointment with Dr. Workman. You will not be able to drive until you can turn your head in both directions without pain. Do not drive after taking your muscle relaxant.
[2019-01-15] MEDS ORDERED: ORPHENADRINE CITRATE 30 MG/ML AMP IM ONE (18:32)
[2019-01-15] MEDS ORDERED: KETOROLAC TROMETHAMINE INJ 30 MG/ML VIAL IM ONE (18:33)
--- NOTE | 2019-01-15 18:42 | RAD ---
EXAM: Cervical Spine,5 Views CLINICAL INDICATION: Neck pain COMPARISON: There is no previous study for comparison. FINDINGS: Six views of the cervical spine reveal no fracture, subluxation, or prevertebral soft tissue swelling. There is limited visualization of C5-C7 due to the patient's body habitus. The osseous structures are otherwise intact and unremarkable. The intervertebral disc spaces are preserved. IMPRESSION: Limited, grossly negative cervical spine radiographs. Electronically signed by: Mario Portillo MD 01/15/2019 6:39 PM CDT
[2019-01-15 19:49] VITALS: BP 120/83; O2SAT 98
[2019-01-15 20:14] VITALS: TEMP 97.8
== END 2019-01-15 19:55 | disposition home or self-care (01) ==
LOC: ER 17:46
DX: S13.9XXA Sprain of joints and ligaments of unspecified parts of neck, initial encounter (principal); J44.9 Chronic obstructive pulmonary disease, unspecified; I10 Essential (primary) hypertension; E07.9 Disorder of thyroid, unspecified; K21.9 Gastro-esophageal reflux disease without esophagitis; Z87.891 Personal history of nicotine dependence; Z79.899 Other long term (current) drug therapy; X50.9XXA Other and unspecified overexertion or strenuous movements or postures, initial encounter; Y92.89 Other specified places as the place of occurrence of the external cause; Y93.E8 Activity, other personal hygiene
CPT/HCPCS: 72050; J1885; J2360

== ENCOUNTER 2019-05-02 17:17 | Emergency (ER) | payer MEDICARE ==
[2019-05-02 17:43] VITALS: O2SAT 98
[2019-05-02] MEDS ORDERED: DEXAMETHASONE INJ 10 MG/ML VIAL IM ONE (18:44)
[2019-05-02] MEDS ORDERED: HYDROcodone 10MG/APAP 325MG 1 EA TAB PO ONE (18:44)
--- NOTE | 2019-05-02 18:47 | ED.PDOC ---
History of Present Illness - General Chief Complaint: ENT Problem Stated Complaint: Sore throat x 24 hours Time Seen by Provider: 05/02/19 17:42 Source: patient, RN notes reviewed, Vital Signs reviewed Exam Limitations: no limitations - History of Present Illness Timing/Duration: gradual, yesterday Severity: moderate EENT Location: throat Prearrival Treatment: no prearrival treatment Improving Factors: nothing Worsening Factors: eating Associated Symptoms: malaise, voice change Allergies/Adverse Reactions: Allergies NO KNOWN ALLERGY Allergy (Verified 05/02/19 17:43) Home Medications: Ambulatory Orders Budes/Formoterol INH 160/4.5 [Symbicort Inhaler 160/4.5] 1 puff INH BID 08/14/18 Dexlansoprazole [Dexilant] 30 mg PO DAILY 08/14/18 Levothyroxine Sodium [Levoxyl] 100 mcg PO DAILY 08/14/18 Lisinopril & Hydrochlorothiazi [Zestoretic 20-25 mg] 1 tab PO DAILY 08/14/18 Pitavastatin Calcium [Livalo] 4 mg PO DAILY 08/14/18 Albuterol Inhaler [Ventolin Hfa Inhaler] 0 gm INH Q6H PRN 12/14/18 Ferrous Sulfate [Iron] 65 mg PO DAILY 12/14/18 Ibuprofen 800 mg PO TID PRN 12/14/18 tiZANidine [Zanaflex] 4 mg PO DAILY 12/14/18 Albuterol Sulfate Nebs [Proventil Nebs] 2.5 mg NEB Q4H PRN #30 vial 12/15/18 Dextromethorphan Polistirex [Robitussin 12 Hour Cough] 5 mg PO Q12HR PRN #1 bottle 12/15/18 Ketorolac Tromethamine [Toradol Tabs] 10 mg PO Q6HRS PRN #16 tab 01/15/19 Tramadol HCl 50 mg PO Q8H PRN 3 Days #9 tab 05/02/19 Review of Systems - Review of Systems Constitutional: States: see HPI EENTM: States: see HPI Respiratory: States: no symptoms reported Cardiology: States: no symptoms reported Gastrointestinal/Abdominal: States: no symptoms reported Skin: States: no symptoms reported Neurological: States: no symptoms reported Past Medical History (General) - Patient Medical History Hx Seizures: No Hx Stroke: No Hx Dementia: No Hx Asthma: No Hx of COPD: Yes Hx Cardiac Disorders: No Hx Congestive Heart Failure: No Hx Pacemaker: No Hx Hypertension: Yes Hx Thyroid Disease: Yes Hx Diabetes: No Hx Gastroesophageal Reflux: Yes Hx Renal Disease: No Hx Cancer: No Hx of HIV: No Hx Hepatitis C: No Hx MRSA: No Surgical History: no surgical history - Vaccination History Hx Tetanus, Diphtheria Vaccination: No Hx Influenza Vaccination: No Hx Pneumococcal Vaccination: No - Social History Hx Tobacco Use: No Hx Alcohol Use: No Hx Substance Use: No Hx Substance Use Treatment: No Hx Depression: No Hx Physical Abuse: No Hx Emotional Abuse: No Hx Suspected Abuse: No - Female History Patient is a Female of Child Bearing Age (10 -59 yrs old): Yes Family Medical History - Family History Mother Family History: Unknown Living Status: Still Living Hx Family Diabetes: Yes - mom Hx Family Cancer: Yes - dad-lungs Physical Exam - Physical Exam General Appearance: Alert, Comfortable, No apparent distress Nasal Exam: normal inspection Throat Exam: normal mouth inspection, pharynx swelling, tonsillar exudate, tonsillar swelling Neck: non-tender, full range of motion, supple, normal inspection Cardiovascular/Respiratory: no respiratory distress Neurologic: no motor/sensory deficits, alert, normal mood/affect, oriented x 3 Skin Exam: normal color, warm/dry Progress - Results/Orders Results/Orders: strep negative Departure - Departure Clinical Impression: Pharyngitis Qualifiers: Pharyngitis/tonsillitis etiology: unspecified etiology Qualified Code(s): J02.9 - Acute pharyngitis, unspecified Time of Disposition: 18:47 Disposition: Discharge to Home or Self Care Departure Forms: ED Discharge - Pt. Copy, Patient Portal Self Enrollment Instructions: Viral Pharyngitis (DC) Referrals: Esha Yan NP [Nurse Practitioner] - 05/05/19 (if not improving) Prescriptions: Tramadol HCl 50 mg PO Q8H PRN 3 Days #9 tab PRN Reason: Moderate Pain Home Medications: Ambulatory Orders Budes/Formoterol INH 160/4.5 [Symbicort Inhaler 160/4.5] 1 puff INH BID 08/14/18 Dexlansoprazole [Dexilant] 30 mg PO DAILY 08/14/18 Levothyroxine Sodium [Levoxyl] 100 mcg PO DAILY 08/14/18 Lisinopril & Hydrochlorothiazi [Zestoretic 20-25 mg] 1 tab PO DAILY 08/14/18 Pitavastatin Calcium [Livalo] 4 mg PO DAILY 08/14/18 Albuterol Inhaler [Ventolin Hfa Inhaler] 0 gm INH Q6H PRN 12/14/18 Ferrous Sulfate [Iron] 65 mg PO DAILY 12/14/18 Ibuprofen 800 mg PO TID PRN 12/14/18 tiZANidine [Zanaflex] 4 mg PO DAILY 12/14/18 Albuterol Sulfate Nebs [Proventil Nebs] 2.5 mg NEB Q4H PRN #30 vial 12/15/18 Dextromethorphan Polistirex [Robitussin 12 Hour Cough] 5 mg PO Q12HR PRN #1 bottle 12/15/18 Ketorolac Tromethamine [Toradol Tabs] 10 mg PO Q6HRS PRN #16 tab 01/15/19 Tramadol HCl 50 mg PO Q8H PRN 3 Days #9 tab 05/02/19
[2019-05-02 19:16] VITALS: BP 93/62; TEMP 99.2
== END 2019-05-02 19:16 | disposition home or self-care (01) ==
LOC: SUPCPDRO 17:17 → ER 17:17
DX: J02.9 Acute pharyngitis, unspecified (principal); K21.9 Gastro-esophageal reflux disease without esophagitis; E07.9 Disorder of thyroid, unspecified; I10 Essential (primary) hypertension; J44.9 Chronic obstructive pulmonary disease, unspecified; Z79.899 Other long term (current) drug therapy
CPT/HCPCS: 87070; 87880; J1100

== ENCOUNTER → 2019-05-29 | Outpatient (CLI) | payer MEDICARE | LOC: LAB.O 13:11 | PROVIDERS: ATTEND Nurse Practitioner Family | DX: Z00.01 Encounter for general adult medical examination with abnormal findings (principal); E03.9 Hypothyroidism, unspecified; D64.9 Anemia, unspecified; J44.9 Chronic obstructive pulmonary disease, unspecified; E66.9 Obesity, unspecified; N93.9 Abnormal uterine and vaginal bleeding, unspecified; E78.2 Mixed hyperlipidemia; E61.1 Iron deficiency; D52.9 Folate deficiency anemia, unspecified; D51.9 Vitamin B12 deficiency anemia, unspecified; Z68.43 Body mass index [BMI] 50.0-59.9, adult ==

== ENCOUNTER → 2019-07-28 | Outpatient (CLI) | payer MEDICARE | LOC: LAB.O 11:42 | PROVIDERS: ATTEND Internal Medicine Medical Oncology | DX: D50.8 Other iron deficiency anemias (principal) ==

== ENCOUNTER → 2019-11-21 | Outpatient (CLI) | payer MEDICARE | LOC: LAB.O 14:37 | PROVIDERS: ATTEND Internal Medicine Medical Oncology | DX: D50.8 Other iron deficiency anemias (principal) ==

== ENCOUNTER → 2020-04-23 | Outpatient (CLI) | payer MEDICARE | LOC: LAB.O 14:44 | PROVIDERS: ATTEND Internal Medicine Medical Oncology | DX: D50.8 Other iron deficiency anemias (principal) ==

== ENCOUNTER → 2020-04-29 | Outpatient (CLI) | payer MEDICARE ==
--- NOTE | 2020-04-29 15:03 | MRI ---
EXAM DESCRIPTION: Knee,Right CLINICAL HISTORY: MEDIAL MENISCUS TEAR, Right knee pain mostly below patella more than medial side. Of known injury COMPARISON: None Available. TECHNIQUE: MRI of the right knee is performed with multiplanar multi sequence imaging, without intravenous contrast. FINDINGS: Bone and joint: No focal bony contusion or acute fracture. Mild to moderate knee osteoarthrosis with small tricompartmental osteophyte formation. Moderate knee joint effusion. Increased signal within the bone marrow likely related to mild red marrow conversion. Cartilage: Medial knee compartment background grade 2-3 chondrosis with focus of full-thickness/grade 4 cartilage loss involving the medial femoral condyle anterior weightbearing surface measuring 8 mm in transverse dimension (series 601 image 18). Grade two chondrosis involves the lateral knee compartment. Grade two chondrosis involves the patellofemoral compartment. Medial meniscus: Degenerative intrasubstance signal within the posterior horn and posterior body. Suspect small tear of the body surfacing inferiorly (series 601 image 20) within the red-white zone. Lateral meniscus: Intact Anterior cruciate ligament: Intact Posterior cruciate ligament: Intact Medial collateral ligament: Intact Lateral collateral ligament: Intact Popliteus tendon: Intact Biceps femoris tendon: Intact Iliotibial band: Intact Medial and lateral retinaculum: Intact Extensor mechanism: The distal quadriceps tendon is intact. The patella tendon is intact. Soft tissues: Small Wilks cyst measuring 2.2 cm. No focal muscle strain or atrophy. IMPRESSION: 1. Medial meniscus degenerative intrasubstance signal with suspected small undersurface tear. 2. Mild to moderate knee osteoarthrosis with medial femoral condyle small focus of full-thickness cartilage loss. Lateral knee and patellofemoral compartment low-grade chondrosis. 3. Moderate size knee joint effusion. 4. Small Wilks's cyst. Electronically signed by: Jamison Ferro DO 04/29/2020 3:01 PM CDT
== END ==
LOC: MRI 10:45
PROVIDERS: ATTEND Orthopaedic Surgery
DX: S83.231A Complex tear of medial meniscus, current injury, right knee, initial encounter (principal); M71.21 Synovial cyst of popliteal space [Baker], right knee; M25.461 Effusion, right knee; M17.11 Unilateral primary osteoarthritis, right knee; M94.261 Chondromalacia, right knee

== ENCOUNTER → 2020-05-19 | Outpatient (CLI) | payer MEDICARE ==
--- NOTE | 2020-05-20 09:37 | MAM ---
EXAM DESCRIPTION: 3D Screening BILATERAL : Digital Mammography. CLINICAL HISTORY: 49 years Female screening . No complaints. No personal or family history of breast cancer. Menarche age 12. Childbirth age 13. Hysterectomy age 49. No HRT. Lifetime risk of developing breast cancer (Tyrer-Cuzick model)(%): 6.5. COMPARISON: 2-D digital screening bilateral mammography April 2017. TECHNIQUE: Bilateral CC and MLO projection full-field images, digital tomosynthesis mammographic technique. Bilateral digital 2-D full-field MLO images. CAD available for 2-D images. FINDINGS: The breast parenchymal density pattern is: Scattered areas of fibroglandular density. No skin thickening or nipple retraction. Stable focal asymmetry upper outer quadrant middle third right breast. Bilateral benign type microcalcification groups. Intramammary lymph nodes. No new focal, stellate mass or density, focal asymmetry , and no suspicious microcalcifications bilaterally. Stable mammograms compared to prior study. Taking into account, differences in mammographic technique. IMPRESSION: Benign exam. BIRAD CATEGORY: 2 BENIGN FINDINGS. RECOMMENDATIONS: FOLLOW UP: Routine digital bilateral mammographic screening, one year interval from May 2020. Written communication explaining the IMPRESSION and follow-up, will be mailed to the patient and referring health care provider. According to the [employer], yearly mammograms are recommended starting at age 40 and continuing as long as a woman is in good health. Any breast change noted on a breast self-exam should be reported promptly to the patient's healthcare provider. Breast MRI is recommended for women with an approximately 20-25% or greater lifetime risk of breast cancer, including women with a strong family history of breast or ovarian cancer and women who have been treated for Hodgkin's disease. A negative mammographic report should not delay tissue diagnosis in patients with significant clinical history or physical findings. Extremely dense breast tissue limits the sensitivity of digital mammography. Electronically signed by: Johnie Cloud MD 05/20/2020 9:35 AM CDT
== END ==
LOC: MAMMO 14:00
PROVIDERS: ATTEND Neurological Surgery
DX: Z12.31 Encounter for screening mammogram for malignant neoplasm of breast (principal)